=== PATIENT | male | born 1950 | race Caucasian/White ===

== ENCOUNTER 2021-04-26 13:23 | Inpatient (IN) ==
[2021-04-26] MEDS ORDERED: Isovue-370 500 ML BOTTLE IVP ONE (14:21)
[2021-04-26 14:44] LABS: Basophils # 0.1 K/mcL (0.0-0.2); Basophils % 0.8 %; Eosinophils # 0.1 K/mcL (0.0-0.6); Eosinophils % 1.2 %; Hematocrit 40.1 % (37.5-50.1); Hemoglobin 12.6 g/dL (12.9-16.9); Immature Granulocytes % 0.8 % (0-4); Lymphocytes # 1.6 K/mcL (0.6-4.6); Mean Corpuscular HGB Conc 31.4 g/dL (31.6-35.5); Mean Corpuscular Hemoglobin 26.3 pg (28.0-33.3); Mean Corpuscular Volume 83.5 fL (83.0-100.0); Mean Platelet Volume 8.8 fL (9.4-12.4); Monocytes # 1.2 K/mcL (0.0-1.3); Monocytes % 14.4 %; Neutrophils # 5.4 K/mcL (1.6-8.9); Platelet Count 253 K/mcL (140-400); Segmented Neutrophils % 63.8 %; White Blood Count 8.5 K/mcL (4.3-11.1)
[2021-04-26 15:18] LABS: Troponin I < 0.03 ng/mL (< 0.04)
[2021-04-26 15:22] LABS: BUN/Creatinine Ratio 19 (6-26); Blood Urea Nitrogen 28 mg/dL (8-23); Calcium 9.7 mg/dL (8.6-10.3); Carbon Dioxide 26 mEq/L (23-29); Chloride 108 mEq/L (98-107); Glucose 113 mg/dL (70-105); Magnesium 2.1 mg/dL (1.6-2.6); Osmolality,Calculated 296 (280-300); Potassium 4.3 mEq/L (3.5-5.1); Sodium 140 mEq/L (136-145); Thyroid Stimulating Hormone 1.557 mcIU/mL (0.340-5.600); eGFR For African Americans 59 (> 60); eGFR For Non-African Americans 49 (> 60)
[2021-04-26] MEDS ORDERED: Acetaminophen 325 MG TABLET PO ONE (16:23)
[2021-04-26] MEDS ORDERED: Perflutren Lipid Microsphere 1.3 ML in 0.9 % Sodium Chloride 8.7 ML IVP PRN (17:03)
[2021-04-26] MEDS ORDERED: Mag Hydrox/Al Hydrox/Simeth 30 ML UDC PO PRN (17:48)
[2021-04-26] MEDS ORDERED: MOM Conc 10 ML UD.LIQ PO PRN (17:48)
[2021-04-26] MEDS ORDERED: Acetaminophen 325 MG TABLET PO PRN (17:48)
[2021-04-26] MEDS ORDERED: Ondansetron 4 MG/2 ML VIAL IVP PRN (17:48)
[2021-04-26] MEDS ORDERED: Melatonin 3 MG TABLET PO PRN (17:48)
[2021-04-26] MEDS ORDERED: Naloxone 0.4 MG/ML INJ IVP PRN (17:48)
[2021-04-26] MEDS ORDERED: 0.9 % Sodium Chloride 1,000 ML IVC SCH (18:00)
[2021-04-26 23:19] LABS: Bilirubin,Urine Negative (Negative); Blood,Urine Negative (Negative); Clarity,Urine Clear (Clear); Color,Urine Light-Yellow (Yellow); Glucose,Urine (UA) Normal (Normal); Ketones,Urine Negative (Negative); Leukocyte Esterase,Urine Negative (Negative); Nitrite,Urine Negative (Negative); Protein,Urine Trace mg/dL (Neg-Trace); Specific Gravity,Urine > 1.030 (1.010-1.025); Urobilinogen,Urine Normal (Normal)
[2021-04-27 04:49] LABS: Basophils # 0.1 K/mcL (0.0-0.2); Basophils % 0.8 %; Eosinophils # 0.2 K/mcL (0.0-0.6); Eosinophils % 2.4 %; Hematocrit 37.2 % (37.5-50.1); Hemoglobin 11.9 g/dL (12.9-16.9); Immature Granulocytes % 0.8 % (0-4); Lymphocytes # 1.4 K/mcL (0.6-4.6); Lymphocytes % 18.7 %; Mean Corpuscular Hemoglobin 26.5 pg (28.0-33.3); Mean Corpuscular Volume 82.9 fL (83.0-100.0); Mean Platelet Volume 9.2 fL (9.4-12.4); Monocytes # 1.3 K/mcL (0.0-1.3); Monocytes % 16.9 %; Neutrophils # 4.5 K/mcL (1.6-8.9); Platelet Count 242 K/mcL (140-400); Red Blood Count 4.49 M/mcL (4.19-5.50); Segmented Neutrophils % 60.4 %; White Blood Count 7.4 K/mcL (4.3-11.1)
[2021-04-27 05:02] LABS: BUN/Creatinine Ratio 25 (6-26); Blood Urea Nitrogen 28 mg/dL (8-23); Calcium 8.6 mg/dL (8.6-10.3); Carbon Dioxide 24 mEq/L (23-29); Chloride 108 mEq/L (98-107); Chol/HDL Ratio 4.7 (0-4.9); Cholesterol 140 mg/dL (< 200); Glucose 108 mg/dL (70-105); HDL Cholesterol 30 mg/dL (40-59); LDL Cholesterol,Calculated 78 mg/dL (< 100); Magnesium 2.1 mg/dL (1.6-2.6); Osmolality,Calculated 292 (280-300); Potassium 4.2 mEq/L (3.5-5.1); Sodium 138 mEq/L (136-145); Triglycerides 160 mg/dL (< 150); Troponin I < 0.03 ng/mL (< 0.04); eGFR For African Americans > 60 (> 60); eGFR For Non-African Americans > 60 (> 60)
[2021-04-27 05:35] LABS: Estimated Average Glucose 123 mg/dl; Hemoglobin A1C 5.9 %
[2021-04-27] MEDS ORDERED: *HR* Heparin 5,000 UNIT/ML VIAL IVP PRN ×2 (13:55)
[2021-04-27] MEDS ORDERED: *HR* Heparin 5,000 UNIT/ML VIAL IVP ONE (13:55)
[2021-04-27] MEDS: Heparin 25,000UNIT/250ML 1/2NS 25,000 UNIT/250 ML IV.SOLN IVC SCH (15:06)
[2021-04-27 16:19] LABS: Hematocrit 40.4 % (37.5-50.1); Hemoglobin 12.8 g/dL (12.9-16.9); Mean Corpuscular HGB Conc 31.7 g/dL (31.6-35.5); Mean Corpuscular Hemoglobin 26.6 pg (28.0-33.3); Mean Platelet Volume 9.3 fL (9.4-12.4); Platelet Count 251 K/mcL (140-400); Red Blood Count 4.81 M/mcL (4.19-5.50); Red Cell Distribution Width 15.9 % (11.5-14.5); White Blood Count 7.7 K/mcL (4.3-11.1)
[2021-04-27 16:20] LABS: INR 1.2; Prothrombin Time 13.8 Seconds (9.4-12.1)
[2021-04-27 16:24] LABS: Heparin anti-factor XA UFH 1.13 IU/mL (0.30-0.70)
[2021-04-27] MEDS: Furosemide 20 MG TABLET PO SCH (17:34)
[2021-04-27] MEDS: Gabapentin 300 MG CAPSULE PO SCH (19:49)
[2021-04-28 01:04] LABS: Hematocrit 36.7 % (37.5-50.1); Hemoglobin 11.3 g/dL (12.9-16.9); Mean Corpuscular HGB Conc 30.8 g/dL (31.6-35.5); Mean Corpuscular Hemoglobin 25.8 pg (28.0-33.3); Mean Corpuscular Volume 83.8 fL (83.0-100.0); Mean Platelet Volume 9.2 fL (9.4-12.4); Platelet Count 223 K/mcL (140-400); Red Blood Count 4.38 M/mcL (4.19-5.50); Red Cell Distribution Width 15.9 % (11.5-14.5); White Blood Count 8.5 K/mcL (4.3-11.1)
[2021-04-28 01:24] LABS: Alanine Aminotransferase 15 Units/L (7-52); Albumin 3.6 g/dL (3.5-5.7); Albumin/Globulin Ratio 1.4 (1.1-2.2); Alkaline Phosphatase 63 Units/L (34-104); Aspartate Amino Transferase 23 Units/L (13-39); BUN/Creatinine Ratio 22 (6-26); Bilirubin,Total 0.7 mg/dL (0.3-1.0); Blood Urea Nitrogen 26 mg/dL (8-23); Calcium 8.7 mg/dL (8.6-10.3); Carbon Dioxide 24 mEq/L (23-29); Chloride 105 mEq/L (98-107); Globulin 2.5 g/dL (2.4-3.5); Glucose 99 mg/dL (70-105); Osmolality,Calculated 289 (280-300); Sodium 137 mEq/L (136-145); Total Protein 6.1 g/dL (6.4-8.9); eGFR For African Americans > 60 (> 60); eGFR For Non-African Americans > 60 (> 60)
[2021-04-28] MEDS ORDERED: Regadenoson 0.4 MG/5 ML SYRINGE IVP ONE (06:39)
[2021-04-28] MEDS: Furosemide 20 MG TABLET PO SCH (09:58)
[2021-04-28] MEDS: Finasteride 5 MG TABLET PO SCH (09:58)
[2021-04-28] MEDS: Heparin 25,000UNIT/250ML 1/2NS 25,000 UNIT/250 ML IV.SOLN IVC SCH ×2 (10:10→14:31)
[2021-04-28] MEDS: Gabapentin 300 MG CAPSULE PO SCH (21:00)
[2021-04-29] MEDS: Heparin 25,000UNIT/250ML 1/2NS 25,000 UNIT/250 ML IV.SOLN IVC SCH (02:37)
[2021-04-29 05:43] LABS: Hematocrit 36.7 % (37.5-50.1); Hemoglobin 11.5 g/dL (12.9-16.9); Mean Corpuscular HGB Conc 31.3 g/dL (31.6-35.5); Mean Corpuscular Hemoglobin 26.2 pg (28.0-33.3); Mean Corpuscular Volume 83.6 fL (83.0-100.0); Mean Platelet Volume 9.2 fL (9.4-12.4); Platelet Count 236 K/mcL (140-400); Red Blood Count 4.39 M/mcL (4.19-5.50); Red Cell Distribution Width 16.2 % (11.5-14.5); White Blood Count 7.4 K/mcL (4.3-11.1)
[2021-04-29 07:49] LABS: Alanine Aminotransferase 15 Units/L (7-52); Albumin 3.5 g/dL (3.5-5.7); Albumin/Globulin Ratio 1.3 (1.1-2.2); Alkaline Phosphatase 61 Units/L (34-104); Aspartate Amino Transferase 24 Units/L (13-39); BUN/Creatinine Ratio 21 (6-26); Bilirubin,Total 0.6 mg/dL (0.3-1.0); Blood Urea Nitrogen 24 mg/dL (8-23); Calcium 8.8 mg/dL (8.6-10.3); Carbon Dioxide 25 mEq/L (23-29); Chloride 106 mEq/L (98-107); Globulin 2.6 g/dL (2.4-3.5); Glucose 109 mg/dL (70-105); Osmolality,Calculated 289 (280-300); Potassium 4.1 mEq/L (3.5-5.1); Sodium 137 mEq/L (136-145); Total Protein 6.1 g/dL (6.4-8.9); eGFR For African Americans > 60 (> 60); eGFR For Non-African Americans > 60 (> 60)
[2021-04-29] MEDS ORDERED: DilTIAZem CD (24hr) 180 MG CAP.ER.24H PO SCH (09:00)
[2021-04-29] MEDS: Finasteride 5 MG TABLET PO SCH (09:44)
[2021-04-29] MEDS: Furosemide 20 MG TABLET PO SCH (09:44)
[2021-04-29 10:32] VITALS: BP 127/74
== END 2021-04-29 14:37 | disposition home or self-care (01) | DRG 312 ==
LOC: EMEROOARM 13:23 → 3BNU 13:23 → SUATTDRO 16:59 → 3BNU 17:58 → SUATTDRO 04-27 16:25
PROVIDERS: ADMIT Internal Medicine; ATTEND Nurse Practitioner